=== PATIENT | female | born 1965 | race Caucasian/White ===

== ENCOUNTER 2017-02-27 13:58 | Emergency (ER) | payer SELFPAY ==
[2017-02-27 14:31] LABS: Clarity Clear (Clear)
[2017-02-27 14:32] LABS: Bilirubin Negative (Negative); Blood, Urine Trace (Negative); Glucose, Urine (Dipstick) Negative (Negative); Leukocyte Trace (Negative); Nitrite Negative (Negative); Protein, Urine (Dipstick) Negative (Neg-Trace); Specific Gravity, Urine 1.015 (1.005-1.030); Urobilinogen 0.2 mg/dL (0.2-1.0)
[2017-02-27 14:33] LABS: Bacteria/HPF Rare-Few HPF (None Seen); RBC/HPF 0-3 HPF (0-3); Squamous Epithelial 0-3 HPF (0-3); WBC/HPF 0-3 HPF (0-3)
[2017-02-27 15:10] LABS: #Basophils 0.1 thou/uL (0.0-0.2); #Eosinphils 0.1 thou/uL (0.0-0.7); #Lymphocytes 2.2 thou/uL (1.20-3.40); #Monocytes 0.5 thou/uL (0.11-0.59); #Neutrophils 7.7 thou/uL (1.40-6.50); %Basophils 0.9 % (0.0-1.0); %Eosinophils 1.1 % (0.0-10.0); %Lymphocytes 20.9 % (21.0-51.0); %Neutrophils 72.1 % (42.0-75.0); Hemoglobin 14.5 g/dL (12.0-16.0); Mean Corpuscular HGB CONC 34.8 g/dL (32.0-36.0); Mean Corpuscular Volume 94.8 fl (81.0-99.0); Mean Platelet Volume 11.8 fL (7.4-10.4); Platelet Count 141 thou/uL (130-400); RBC Distribution Width 13.1 % (11.5-14.5); Red Blood Cell (RBC) Count 4.39 mill/uL (4.20-5.40); White Blood Cell (WBC) Count 10.7 thou/uL (4.8-10.8)
[2017-02-27 15:22] LABS: ALT (SGPT) 60 U/L (8-55); AST (SGOT) 35 U/L (5-34); Alkaline Phosphatase 91 U/L (40-150); Anion Gap 17 mmol/L (10-20); BUN (Urea Nitrogen) 16 mg/dL (9.8-20.1); Bilirubin, Total 0.5 mg/dL (0.2-1.2); CRP (Inflammatory) 4.59 mg/dL (= or < 0.5); Calc. Creatinine Clearance 0 mL/min (70-130); Calcium 8.9 mg/dL (7.8-10.44); Carbon Dioxide 21 mmol/L (22-29); Chloride 105 mmol/L (98-107); Estimated GFR-MDRD 75; Globulin 2.9 g/dL (2.4-3.5); Glucose 121 mg/dL (70-105); Protein, Total 6.9 g/dL (6.0-8.3); Sodium 139 mmol/L (136-145)
[2017-02-27] MEDS ORDERED: Cipro 250 MG TAB ONE (15:39)
[2017-02-27] MEDS ORDERED: metroNIDAZOLE 250 MG TAB ONE (15:39)
[2017-02-27] MEDS ORDERED: Ketorolac Tromethamine 60 MG/2 ML VIAL ONE (15:39)
== END 2017-02-27 15:51 | disposition home or self-care (01) ==
LOC: MADERS 13:58
DX: K57.92 Diverticulitis of intestine, part unspecified, without perforation or abscess without bleeding (principal); E78.00 Pure hypercholesterolemia, unspecified; F31.9 Bipolar disorder, unspecified; F17.210 Nicotine dependence, cigarettes, uncomplicated; Z79.899 Other long term (current) drug therapy
CPT/HCPCS: 36415; 80053; 81001; 85025; 86140; 87086; 96372; J1885

== ENCOUNTER 2017-06-03 09:12 | Emergency (ER) | payer SELFPAY ==
[~2017-06-03 09:12] MED LIST: Sodium Chloride 0.9% 1,000 ML BAG ONE
[2017-06-03 09:45] LABS: Clarity Clear (Clear); Glucose, Urine (Dipstick) Negative (Negative); Leukocyte Negative (Negative); Nitrite Negative (Negative); Protein, Urine (Dipstick) Negative (Neg-Trace); Urobilinogen 0.2 mg/dL (0.2-1.0); pH, Urine 5.5 (5.0-9.0)
[2017-06-03 09:46] LABS: Bilirubin Negative (Negative); Blood, Urine Negative (Negative)
[2017-06-03 09:53] LABS: Bacteria/HPF Rare-Few HPF (None Seen); WBC/HPF None Seen HPF (0-3)
[2017-06-03] MEDS ORDERED: metroNIDAZOLE 500 MG/100 ML BAG ONE (10:00)
[2017-06-03] MEDS ORDERED: Ondansetron HCl/PF 4 MG/2 ML Vial ONE (10:00)
[2017-06-03] MEDS ORDERED: Metoclopramide HCl 10 MG/2 ML VIAL ONE (10:00)
[2017-06-03] MEDS ORDERED: Morphine Sulfate 2 MG/ML SYRINGE ONE (10:00)
[2017-06-03 10:23] LABS: #Basophils 0.1 thou/uL (0.0-0.2); #Eosinphils 0.2 thou/uL (0.0-0.7); #Lymphocytes 2.4 thou/uL (1.20-3.40); #Monocytes 0.6 thou/uL (0.11-0.59); #Neutrophils 7.9 thou/uL (1.40-6.50); %Basophils 0.8 % (0.0-1.0); %Eosinophils 1.6 % (0.0-10.0); %Lymphocytes 21.3 % (21.0-51.0); %Monocytes 5.5 % (0.0-10.0); %Neutrophils 70.9 % (42.0-75.0); Hemoglobin 14.4 g/dL (12.0-16.0); Mean Corpuscular HGB CONC 34.3 g/dL (32.0-36.0); Mean Corpuscular Hemoglobin 32.2 pg (27.0-31.0); Mean Corpuscular Volume 93.8 fl (81.0-99.0); Mean Platelet Volume 12.7 fL (7.4-10.4); Platelet Count 141 thou/uL (130-400); RBC Distribution Width 12.5 % (11.5-14.5); Red Blood Cell (RBC) Count 4.47 mill/uL (4.20-5.40); White Blood Cell (WBC) Count 11.2 thou/uL (4.8-10.8)
[2017-06-03 10:27] LABS: Manual Diff?? NO
[2017-06-03 10:34] LABS: ALT (SGPT) 49 U/L (8-55); AST (SGOT) 29 U/L (5-34); Albumin 3.9 g/dL (3.5-5.0); Alkaline Phosphatase 94 U/L (40-150); Anion Gap 15 mmol/L (10-20); BUN (Urea Nitrogen) 14 mg/dL (9.8-20.1); Bilirubin, Total 0.5 mg/dL (0.2-1.2); Calc. Creatinine Clearance 0 mL/min (70-130); Calcium 8.9 mg/dL (7.8-10.44); Carbon Dioxide 22 mmol/L (22-29); Chloride 106 mmol/L (98-107); Estimated GFR-MDRD 79; Glucose 98 mg/dL (70-105); Lipase 66 U/L (8-78); Potassium 4.1 mmol/L (3.5-5.1); Protein, Total 6.9 g/dL (6.0-8.3); Sodium 139 mmol/L (136-145)
== END 2017-06-03 11:40 | disposition home or self-care (01) ==
LOC: MADERS 09:12
DX: K57.92 Diverticulitis of intestine, part unspecified, without perforation or abscess without bleeding (principal); F31.9 Bipolar disorder, unspecified; F17.210 Nicotine dependence, cigarettes, uncomplicated; Z79.82 Long term (current) use of aspirin
CPT/HCPCS: 80053; 81001; 82150; 83690; 85025; 87086; 96365; 96375; J2270; J2405; J2765; J7050

== ENCOUNTER 2017-10-08 15:35 | Emergency (ER) | payer SELFPAY | END 2017-10-08 16:17 | disposition home or self-care (01) | LOC: MADERS 15:35 | DX: J11.1 Influenza due to unidentified influenza virus with other respiratory manifestations (principal); E78.00 Pure hypercholesterolemia, unspecified; F31.9 Bipolar disorder, unspecified; F17.210 Nicotine dependence, cigarettes, uncomplicated; Z79.82 Long term (current) use of aspirin | CPT/HCPCS: 99406 ==

== ENCOUNTER 2017-11-02 22:15 | Emergency (ER) | payer SELFPAY ==
[2017-11-02] MEDS ORDERED: Lorazepam 2 MG/ML VIAL ONE (23:25)
[2017-11-02] MEDS ORDERED: Morphine 4 MG/ML VIAL ONE (23:25)
[2017-11-02] MEDS ORDERED: Aspirin 325 MG TAB ONE (23:26)
[2017-11-02] MEDS ORDERED: AMOXicillin 250 MG CAP ONE (23:26)
[2017-11-02] MEDS ORDERED: Ondansetron HCl/PF 4 MG/2 ML Vial ONE (23:26)
[2017-11-02] MEDS ORDERED: Benzonatate 100 MG CAP ONE (23:26)
[2017-11-02] MEDS ORDERED: Ketorolac Tromethamine 30 MG/ML VIAL ONE (23:26)
[2017-11-02 23:36] LABS: #Basophils 0.2 thou/uL (0.0-0.2); #Eosinphils 0.3 thou/uL (0.0-0.7); #Lymphocytes 3.8 thou/uL (1.20-3.40); #Monocytes 0.5 thou/uL (0.11-0.59); #Neutrophils 5.2 thou/uL (1.40-6.50); %Basophils 1.8 % (0.0-1.0); %Eosinophils 2.6 % (0.0-10.0); %Lymphocytes 38.2 % (21.0-51.0); %Monocytes 5.4 % (0.0-10.0); Hemoglobin 15.4 g/dL (12.0-16.0); Mean Corpuscular HGB CONC 33.4 g/dL (32.0-36.0); Mean Corpuscular Hemoglobin 31.3 pg (27.0-31.0); Mean Corpuscular Volume 93.7 fl (81.0-99.0); Platelet Count 196 thou/uL (130-400); RBC Distribution Width 11.9 % (11.5-14.5); Red Blood Cell (RBC) Count 4.91 mill/uL (4.20-5.40)
--- NOTE | 2017-11-02 23:39 | RAD ---
PORTABLE AP CHEST X-RAY 11/02/17 HISTORY: Chest pain. COMPARISON: 09/30/15. FINDINGS: The cardiac silhouette and pulmonary vasculature are within normal limits. The lungs remain clear. Th ere is has been no interval change from prior exam. IMPRESSION: No acute cardiopulmonary process. POS: [facility]
[2017-11-02 23:50] LABS: ALT (SGPT) 47 U/L (8-55); AST (SGOT) 30 U/L (5-34); Albumin 4.2 g/dL (3.5-5.0); Alkaline Phosphatase 108 U/L (40-150); Anion Gap 17 mmol/L (10-20); BUN (Urea Nitrogen) 13 mg/dL (9.8-20.1); Bilirubin, Total 0.3 mg/dL (0.2-1.2); CK (CPK) 108 U/L (29-168); Calc. Creatinine Clearance 0 mL/min (70-130); Calcium 9.5 mg/dL (7.8-10.44); Carbon Dioxide 21 mmol/L (22-29); Chloride 106 mmol/L (98-107); Estimated GFR-MDRD 61; Globulin 3.3 g/dL (2.4-3.5); Glucose 97 mg/dL (70-105); Potassium 4.2 mmol/L (3.5-5.1); Protein, Total 7.5 g/dL (6.0-8.3); Sodium 140 mmol/L (136-145)
[2017-11-02 23:52] LABS: CKMB 1.8 ng/mL (0-6.6); Troponin I Less than 0.010 ng/mL (< 0.028)
== END 2017-11-03 01:39 | disposition home or self-care (01) ==
LOC: MADERS 22:15
DX: J20.9 Acute bronchitis, unspecified (principal); E78.00 Pure hypercholesterolemia, unspecified; F31.9 Bipolar disorder, unspecified; F17.210 Nicotine dependence, cigarettes, uncomplicated
CPT/HCPCS: 71045; 80053; 82550; 82553; 83880; 84443; 84484; 85025; 93005; 96374; 96375; J1885; J2060; J2270; J2405

== ENCOUNTER 2018-01-06 12:57 | Emergency (ER) | payer SELFPAY ==
[2018-01-06 13:53] LABS: Bilirubin Negative (Negative); Blood, Urine Trace (Negative); Glucose, Urine (Dipstick) Negative (Negative); Leukocyte Negative (Negative); Nitrite Negative (Negative); Protein, Urine (Dipstick) Negative (Neg-Trace); Urobilinogen 0.2 mg/dL (0.2-1.0)
[2018-01-06 13:59] LABS: Clarity Hazy (Clear); RBC/HPF 0-3 HPF (0-3)
[2018-01-06 14:00] LABS: Bacteria/HPF 1+ HPF (None Seen); WBC/HPF 0-3 HPF (0-3)
[2018-01-06] MEDS ORDERED: Ketorolac Tromethamine 30 MG/ML VIAL ONE (14:04)
[2018-01-06] MEDS ORDERED: Ondansetron HCl/PF 4 MG/2 ML Vial ONE (14:04)
[2018-01-06] MEDS ORDERED: MORPHINE 10 MG/ML SYRINGE ONE (14:04)
[2018-01-06 14:13] LABS: #Basophils 0.1 thou/uL (0.0-0.2); #Eosinphils 0.2 thou/uL (0.0-0.7); #Lymphocytes 2.7 thou/uL (1.20-3.40); #Monocytes 0.6 thou/uL (0.11-0.59); #Neutrophils 8.3 thou/uL (1.40-6.50); %Basophils 1.1 % (0.0-1.0); %Eosinophils 1.4 % (0.0-10.0); %Neutrophils 69.4 % (42.0-75.0); Hemoglobin 14.9 g/dL (12.0-16.0); Mean Corpuscular Hemoglobin 31.5 pg (27.0-31.0); Mean Corpuscular Volume 92.5 fl (81.0-99.0); Mean Platelet Volume 11.4 fL (7.4-10.4); Platelet Count 157 thou/uL (130-400); RBC Distribution Width 12.1 % (11.5-14.5); Red Blood Cell (RBC) Count 4.73 mill/uL (4.20-5.40); White Blood Cell (WBC) Count 11.9 thou/uL (4.8-10.8)
[2018-01-06 14:29] LABS: ALT (SGPT) 35 U/L (8-55); AST (SGOT) 27 U/L (5-34); Alkaline Phosphatase 103 U/L (40-150); Anion Gap 17 mmol/L (10-20); BUN (Urea Nitrogen) 13 mg/dL (9.8-20.1); Bilirubin, Total 0.4 mg/dL (0.2-1.2); Calc. Creatinine Clearance 0 mL/min (70-130); Calcium 9.1 mg/dL (7.8-10.44); Carbon Dioxide 20 mmol/L (22-29); Chloride 106 mmol/L (98-107); Estimated GFR-MDRD 75; Globulin 3.1 g/dL (2.4-3.5); Glucose 96 mg/dL (70-105); Potassium 4.1 mmol/L (3.5-5.1); Protein, Total 7.1 g/dL (6.0-8.3); Sodium 139 mmol/L (136-145)
[2018-01-06] MEDS ORDERED: HYDROcodone/Acetaminophen 10/325 mg Tablet ONE (15:05)
[2018-01-06] MEDS ORDERED: Cephalexin 500 MG CAP ONE (15:06)
[2018-01-06] MEDS ORDERED: metroNIDAZOLE 250 MG TAB ONE (15:06)
== END 2018-01-06 15:25 | disposition home or self-care (01) ==
LOC: MADERS 12:57
DX: K57.92 Diverticulitis of intestine, part unspecified, without perforation or abscess without bleeding (principal); E78.00 Pure hypercholesterolemia, unspecified; F31.9 Bipolar disorder, unspecified; F17.210 Nicotine dependence, cigarettes, uncomplicated
CPT/HCPCS: 36415; 80053; 81001; 85025; 87086; 96374; 96375; J1885; J2270; J2405

== ENCOUNTER 2018-11-20 11:37 | Outpatient (CLI) | payer OTHER ==
--- NOTE | 2018-11-20 12:17 | RAD ---
PA AND LATERAL CHEST: History: Shortness of breath. FINDINGS: Heart size and mediastinum are within normal limits. The lungs are clear of any focal infiltrative pr ocess. There are arthritic changes of the spine. IMPRESSION: No active intrathoracic disease. POS: [facility]
--- NOTE | 2018-11-20 12:47 | RAD ---
LUMBAR SPINE SERIES THREE VIEWS: HISTORY: Chronic low back pain. COMPARISON: 02/23/2015 FINDINGS: Vertebral bodies are normal in height. There are degenerative osteophytes along the course of the sp ine without significant disk narrowing. Pedicles are intact. Vascular calcifications are seen. IMPRESSION: Mild arthritic changes of the spine, relatively stable as compared to the previous examination. POS: [facility]
== END 2018-11-20 11:38 | disposition home or self-care (01) ==
LOC: MADRAD 11:37
PROVIDERS: ATTEND Physician Assistant
DX: R06.02 Shortness of breath (principal); M54.9 Dorsalgia, unspecified; M47.816 Spondylosis without myelopathy or radiculopathy, lumbar region
CPT/HCPCS: 71046; 72100

== ENCOUNTER 2018-12-07 11:40 | Emergency (ER) | payer OTHER ==
[2018-12-07] MEDS ORDERED: Ondansetron PF 4 MG/2 ML Vial ONE (12:59)
--- NOTE | 2018-12-07 13:19 | RAD ---
CHEST 1 VIEW TWO VIEWS ABDOMEN: HISTORY: Pain. Diarrhea. COMPARISON: 05/27/2015. FINDINGS: ONE VIEW CHEST: Normal cardiac silhouette. Pulmonary vessels and hilum are normal. Costophrenic angles are clear. No consolidation or mass. No pneumothorax or osseous abnormalities. TWO VIEWS ABDOMEN: Nonspecific bowel gas pattern. No suspicious densities in the and or pelvis. No differential air fl uid levels. No pneumoperitoneum. IMPRESSION: 1. No acute cardiopulmonary process. 2. Nonspecific bowel gas pattern. POS: [facility]
== END 2018-12-07 14:32 | disposition home or self-care (01) ==
LOC: MADERS 11:40
DX: A08.4 Viral intestinal infection, unspecified (principal); I10 Essential (primary) hypertension; E78.00 Pure hypercholesterolemia, unspecified; F31.9 Bipolar disorder, unspecified; F17.210 Nicotine dependence, cigarettes, uncomplicated
CPT/HCPCS: 74022; 94760; 96361; 96374; J2405; J7050

== ENCOUNTER 2019-04-12 08:24 | Emergency (ER) | payer OTHER | END 2019-04-12 09:15 | disposition home or self-care (01) | LOC: MADERS 08:24 | DX: J06.9 Acute upper respiratory infection, unspecified (principal); I10 Essential (primary) hypertension; E78.00 Pure hypercholesterolemia, unspecified; F31.9 Bipolar disorder, unspecified; F17.210 Nicotine dependence, cigarettes, uncomplicated | CPT/HCPCS: 87081; 87430; 87804; 99283 ==

== ENCOUNTER 2019-09-11 08:06 | Emergency (ER) | payer OTHER ==
[2019-09-11] MEDS ORDERED: Meclizine HCl 25 MG TAB ONE (08:49)
[2019-09-11] MEDS ORDERED: Ondansetron ODT 4 MG TAB ONE (08:49)
[2019-09-11] MEDS ORDERED: Diazepam 10 MG/2 ML SYRINGE ONE ×2 (09:18→09:56)
[2019-09-11] MEDS ORDERED: Sodium Chloride 0.9% 1,000 ML ONE (09:18)
[2019-09-11 09:46] LABS: #Basophils 0.1 thou/uL (0.0-0.2); #Eosinphils 0.1 thou/uL (0.0-0.7); #Monocytes 0.3 thou/uL (0.11-0.59); #Neutrophils 5.8 thou/uL (1.40-6.50); %Basophils 1.1 % (0.0-1.0); %Eosinophils 1.7 % (0.0-10.0); %Lymphocytes 24.1 % (21.0-51.0); %Monocytes 3.6 % (0.0-10.0); %Neutrophils 69.6 % (42.0-75.0); Hemoglobin 15.7 g/dL (12.0-16.0); Mean Corpuscular HGB CONC 31.4 g/dL (32.0-36.0); Mean Corpuscular Hemoglobin 29.1 pg (27.0-31.0); Mean Corpuscular Volume 92.9 fL (78.0-98.0); Mean Platelet Volume 10.9 fL (7.4-10.4); Platelet Count 170 thou/uL (130-400); RBC Distribution Width 12.2 % (11.5-14.5); Red Blood Cell (RBC) Count 5.39 mill/uL (4.20-5.40); White Blood Cell (WBC) Count 8.3 thou/uL (4.8-10.8)
--- NOTE | 2019-09-11 09:52 | CT ---
EXAM: CT brain without contrast HISTORY: Vertigo COMPARISON: 07/22/2014 TECHNIQUE: Multiple contiguous axial images were obtained and a CT of the brain without contrast. FINDINGS: The brain is normal in morphology and attenuation without focal lesions or confluent areas of infarction. There is no evidence of hydrocephalus, intracranial hemorrhage, or extra-axial fluid collection. The calvarium and overlying soft tissues are unremarkable. The visualized paranasal sinuses and masto id air cells are well aerated. IMPRESSION: No evidence of acute intracranial abnormality
[2019-09-11] MEDS ORDERED: Aspirin 325 MG TAB ONE (09:56)
[2019-09-11 10:06] LABS: Anion Gap 15 mmol/L (10-20); BUN (Urea Nitrogen) 18 mg/dL (9.8-20.1); CK (CPK) 164 U/L (29-168); Calc. Creatinine Clearance 0 mL/min (70-130); Calcium 9.4 mg/dL (7.8-10.44); Carbon Dioxide 23 mmol/L (22-29); Chloride 107 mmol/L (98-107); Estimated GFR-MDRD 71; Glucose 129 mg/dL (70-105); INR-International Normal Ratio 0.9; Potassium 4.4 mmol/L (3.5-5.1); Prothrombin Time 12.3 SEC (12.0-14.7); Sodium 141 mmol/L (136-145)
[2019-09-11 10:07] LABS: PTT 27.1 SEC (22.9-36.1)
[2019-09-11] MEDS ORDERED: Acetaminophen 325 MG TAB PO PRN (13:41)
[2019-09-11] MEDS ORDERED: Diazepam 10 MG/2 ML SYRINGE IVP PRN (13:44)
[2019-09-11] MEDS ORDERED: Ondansetron PF 4 MG/2 ML Vial IVP PRN (14:52)
[2019-09-11] MEDS ORDERED: Ondansetron ODT 4 MG TAB SL PRN (14:52)
== END 2019-09-11 12:11 | disposition short-term general hospital (02) ==
LOC: MADERS 08:06
DX: R42 Dizziness and giddiness (principal)
CPT/HCPCS: 70450; 80048; 82550; 84443; 84484; 85025; 85610; 85730; 93005; 96361; 96374; J3360; J7050; J8597; Q0162

== ENCOUNTER 2019-11-02 05:16 | Emergency (ER) | payer OTHER ==
[2019-11-02] MEDS ORDERED: Ibuprofen 800 MG TAB ONE (05:48)
== END 2019-11-02 06:10 | disposition home or self-care (01) ==
LOC: MADERS 05:16
DX: B34.9 Viral infection, unspecified (principal); I10 Essential (primary) hypertension; F41.9 Anxiety disorder, unspecified; E78.00 Pure hypercholesterolemia, unspecified; G45.9 Transient cerebral ischemic attack, unspecified; F31.9 Bipolar disorder, unspecified; F17.210 Nicotine dependence, cigarettes, uncomplicated; Z79.899 Other long term (current) drug therapy
CPT/HCPCS: 87081; 87430; 87804; 99406

== ENCOUNTER 2019-12-11 06:44 | Emergency (ER) | payer OTHER ==
[2019-12-11] MEDS ORDERED: Ondansetron PF 4 MG/2 ML Vial ONE (07:24)
[2019-12-11] MEDS ORDERED: Sodium Chloride 0.9% 1,000 ML ONE (07:24)
[2019-12-11] MEDS ORDERED: Fentanyl 100 MCG/2 ML VIAL ONE (07:24)
[2019-12-11 07:44] LABS: #Basophils 0.1 thou/uL (0.0-0.2); #Eosinphils 0.1 thou/uL (0.0-0.7); #Lymphocytes 1.9 thou/uL (1.20-3.40); #Monocytes 0.5 thou/uL (0.11-0.59); #Neutrophils 9.7 thou/uL (1.40-6.50); %Basophils 0.7 % (0.0-1.0); %Lymphocytes 15.6 % (21.0-51.0); %Monocytes 4.2 % (0.0-10.0); %Neutrophils 78.5 % (42.0-75.0); Hemoglobin 14.2 g/dL (12.0-16.0); Mean Corpuscular HGB CONC 30.9 g/dL (32.0-36.0); Mean Corpuscular Volume 93.7 fL (78.0-98.0); Mean Platelet Volume 11.5 fL (7.4-10.4); Platelet Count 164 thou/uL (130-400); RBC Distribution Width 13.6 % (11.5-14.5); White Blood Cell (WBC) Count 12.3 thou/uL (4.8-10.8)
--- NOTE | 2019-12-11 07:57 | CT ---
CT Abdomen Pelvis W Con History: Lower abdominal pain Comparison: CT exam 2014 Findings: Lung bases are clear. No pericardial effusion. Liver, gallbladder, spleen, pancreas are unremarkable. The aortic contour is nonaneurysmal. There is moderate diverticular disease of the sigmoid colon. Findings of epiploic appendagitis of the sigmoid colon. There is adjacent wall thickening, circumferential, for a length of 5.3 cm may be reactive versus less likely underlying mass. The appendix is visualized and is normal. Mild atherosclerotic plaque. No hydronephrosis. Impression: 1. Epiploic appendagitis sigmoid colon. 2. Circumferential wall thickening for length of 5.3 cm the adjacent sigmoid colon likely sequelae of reactive inflammation and less likely a mass. If the patient has not artery had a colonoscopy, nonemergent colonoscopic evaluation is recommended. 3. Normal appendix.
[2019-12-11 08:01] LABS: ALT (SGPT) 24 U/L (8-55); AST (SGOT) 18 U/L (5-34); Albumin 4.4 g/dL (3.5-5.0); Alkaline Phosphatase 124 U/L (40-110); Anion Gap 15 mmol/L (10-20); BUN (Urea Nitrogen) 17 mg/dL (9.8-20.1); Bilirubin, Total 0.6 mg/dL (0.2-1.2); Calc. Creatinine Clearance 0 mL/min (70-130); Carbon Dioxide 22 mmol/L (22-29); Chloride 106 mmol/L (98-107); Estimated GFR-MDRD 65; Globulin 3.2 g/dL (2.4-3.5); Glucose 123 mg/dL (70-105); Potassium 4.2 mmol/L (3.5-5.1); Protein, Total 7.6 g/dL (6.0-8.3); Sodium 139 mmol/L (136-145)
[2019-12-11] MEDS ORDERED: Iopamidol 370 76% 100 ML VIAL ONE (10:05)
== END 2019-12-11 08:38 | disposition home or self-care (01) ==
LOC: MADERS 06:44
DX: K63.89 Other specified diseases of intestine (principal); R11.2 Nausea with vomiting, unspecified; I10 Essential (primary) hypertension; E78.00 Pure hypercholesterolemia, unspecified; F41.9 Anxiety disorder, unspecified; F31.9 Bipolar disorder, unspecified; F17.210 Nicotine dependence, cigarettes, uncomplicated; Z71.6 Tobacco abuse counseling; Z86.73 Personal history of transient ischemic attack (TIA), and cerebral infarction without residual deficits; Z79.899 Other long term (current) drug therapy; Z79.82 Long term (current) use of aspirin
CPT/HCPCS: 74177; 80053; 85025; 96361; 96374; 96375; J2405; J3010; J7050; Q9967

== ENCOUNTER 2020-02-22 11:36 | Emergency (ER) | payer OTHER, SELFPAY | END 2020-02-22 12:10 | disposition home or self-care (01) | LOC: MADERS 11:36 | DX: M54.5 Low back pain (principal); I10 Essential (primary) hypertension; F41.9 Anxiety disorder, unspecified; F31.9 Bipolar disorder, unspecified; F17.210 Nicotine dependence, cigarettes, uncomplicated; E78.00 Pure hypercholesterolemia, unspecified; Z86.73 Personal history of transient ischemic attack (TIA), and cerebral infarction without residual deficits; Z79.899 Other long term (current) drug therapy; Z79.82 Long term (current) use of aspirin | CPT/HCPCS: 99283 ==

== ENCOUNTER 2020-04-07 13:58 | Outpatient (CLI) | payer BC ==
--- NOTE | 2020-04-07 14:26 | RAD ---
EXAM: Chest 2 views: HISTORY: Chronic cough COMPARISON: 11/20/2018 FINDINGS: There is a normal-sized cardiomediastinal silhouette. There is no evidence of consolidation, mass, or pleural effusion. The bones are unremarkable. IMPRESSION: No evidence of acute cardiopulmonary disease
== END 2020-04-07 13:59 | disposition home or self-care (01) ==
LOC: MADRAD 13:58
PROVIDERS: ATTEND Family Medicine
DX: R05 Cough (principal)
CPT/HCPCS: 71046

== ENCOUNTER 2020-06-08 16:11 | Emergency (ER) | payer BC | END 2020-06-08 16:45 | disposition home or self-care (01) | LOC: MADERS 16:11 | DX: R50.9 Fever, unspecified (principal); R53.83 Other fatigue; I10 Essential (primary) hypertension; E78.00 Pure hypercholesterolemia, unspecified; F31.9 Bipolar disorder, unspecified; F41.9 Anxiety disorder, unspecified; F17.210 Nicotine dependence, cigarettes, uncomplicated; Z86.73 Personal history of transient ischemic attack (TIA), and cerebral infarction without residual deficits; Z79.899 Other long term (current) drug therapy | CPT/HCPCS: 99283 ==

== ENCOUNTER 2020-06-23 05:43 | Emergency (ER) | payer BC, OTHER ==
[2020-06-23] MEDS ORDERED: Azithromycin 250 MG TAB ONE (07:10)
--- NOTE | 2020-06-23 07:48 | RAD ---
EXAM: Single view of the chest HISTORY: Cough COMPARISON: 11/02/2017 FINDINGS: Single view of the chest shows a normal sized cardiomediastinal silhouette. Increased inte rstitial lung markings are present. There is no evidence of consolidation, mass, or pleural effusion. Degenerative changes are seen in the spine. IMPRESSION: No evidence of acute cardiopulmonary disease
[2020-06-23 18:05] LABS: SARS-CoV-2 MS2 Positive; SARS-CoV-2 N Gene Positive; SARS-CoV-2 S Gene Positive; SARS-CoV-2 by NAA DETECTED (NotDetected); SARS-CoV-2 orf1ab Positive
== END 2020-06-23 07:25 | disposition home or self-care (01) ==
LOC: MADERS 05:43
DX: U07.1 COVID-19 (principal); J01.90 Acute sinusitis, unspecified; F17.200 Nicotine dependence, unspecified, uncomplicated; R53.1 Weakness; I10 Essential (primary) hypertension; E78.00 Pure hypercholesterolemia, unspecified; F41.9 Anxiety disorder, unspecified; F31.9 Bipolar disorder, unspecified; F17.210 Nicotine dependence, cigarettes, uncomplicated; Z86.73 Personal history of transient ischemic attack (TIA), and cerebral infarction without residual deficits; Z79.82 Long term (current) use of aspirin; Z79.899 Other long term (current) drug therapy
CPT/HCPCS: 71045; 87635; U0003

== ENCOUNTER 2021-05-16 20:01 | Emergency (ER) | payer BC, OTHER ==
[2021-05-16] MEDS ORDERED: Sulfameth/Trimethoprim DS 800-160mg TAB ONE (20:53)
[2021-05-16] MEDS ORDERED: Amoxicillin/Potassium Clav 875 MG TAB ONE (20:53)
== END 2021-05-16 21:07 | disposition home or self-care (01) ==
LOC: MADERS 20:01
DX: L03.211 Cellulitis of face (principal); R59.0 Localized enlarged lymph nodes; F17.210 Nicotine dependence, cigarettes, uncomplicated; E11.9 Type 2 diabetes mellitus without complications; E78.5 Hyperlipidemia, unspecified; I10 Essential (primary) hypertension; E78.00 Pure hypercholesterolemia, unspecified; Z86.73 Personal history of transient ischemic attack (TIA), and cerebral infarction without residual deficits
CPT/HCPCS: 99283

== ENCOUNTER 2021-06-09 07:21 | Outpatient (CLI) | payer BC, OTHER ==
[2021-06-09 08:13] LABS: #Basophils 0.1 thou/uL (0.0-0.2); #Eosinphils 0.1 thou/uL (0.0-0.7); #Lymphocytes 2.5 thou/uL (1.20-3.40); #Monocytes 0.3 thou/uL (0.11-0.59); #Neutrophils 4.5 thou/uL (1.40-6.50); %Basophils 1.3 % (0.0-1.0); %Eosinophils 1.8 % (0.0-10.0); %Lymphocytes 32.5 % (21.0-51.0); %Monocytes 4.3 % (0.0-10.0); %Neutrophils 60.1 % (42.0-75.0); Hemoglobin 14.8 g/dL (12.0-16.0); Mean Corpuscular Hemoglobin 28.7 pg (27.0-31.0); Mean Corpuscular Volume 92.8 fL (78.0-98.0); Mean Platelet Volume 11.9 fL (7.4-10.4); Platelet Count 175 thou/uL (130-400); RBC Distribution Width 13.9 % (11.5-14.5); Red Blood Cell (RBC) Count 5.15 mill/uL (4.20-5.40); White Blood Cell (WBC) Count 7.5 thou/uL (4.8-10.8)
[2021-06-09 08:18] LABS: ALT (SGPT) 46 U/L (8-55); AST (SGOT) 42 U/L (5-34); Albumin 3.8 g/dL (3.5-5.0); Alkaline Phosphatase 104 U/L (40-110); Anion Gap 13 mmol/L (10-20); BUN (Urea Nitrogen) 17 mg/dL (9.8-20.1); Bilirubin, Total 0.4 mg/dL (0.2-1.2); Calc. Creatinine Clearance 0 mL/min (70-130); Calcium 8.9 mg/dL (7.8-10.44); Carbon Dioxide 24 mmol/L (22-29); Cardiac Risk 7.5 (Less than 4.5); Chloride 107 mmol/L (98-107); Cholesterol 172 mg/dl (< 200 Desired); Globulin 3.3 g/dL (2.4-3.5); Glucose 131 mg/dL (70-105); HDL Cholesterol 23 mg/dL (>60 Neg Risk); Lipase 146 U/L (8-78); Potassium 4.2 mmol/L (3.5-5.1); Protein, Total 7.1 g/dL (6.0-8.3); Sodium 140 mmol/L (136-145); Triglycerides 563 mg/dL (Less than 150)
== END 2021-06-09 07:22 | disposition home or self-care (01) ==
LOC: MADLAB 07:21
PROVIDERS: ATTEND Family Medicine
DX: R10.811 Right upper quadrant abdominal tenderness (principal); E78.5 Hyperlipidemia, unspecified; R93.2 Abnormal findings on diagnostic imaging of liver and biliary tract
CPT/HCPCS: 36415; 76705; 80053; 80061; 82150; 83690; 85025

== ENCOUNTER 2021-07-28 15:09 | Emergency (ER) | payer OTHER ==
[~2021-07-28 15:09] MED LIST changes: +Iopamidol 370 76% 100 ML VIAL ONE; -Sodium Chloride 0.9% 1,000 ML BAG ONE
[2021-07-28] MEDS ORDERED: Morphine 4 MG/ML VIAL ONE ×2 (16:43→20:26)
[2021-07-28 17:07] LABS: #Basophils 0.1 thou/uL (0.0-0.2); #Eosinphils 0.1 thou/uL (0.0-0.7); #Lymphocytes 0.9 thou/uL (1.20-3.40); #Monocytes 0.2 thou/uL (0.11-0.59); #Neutrophils 5.9 thou/uL (1.40-6.50); %Basophils 1.1 % (0.0-1.0); %Eosinophils 0.8 % (0.0-10.0); %Lymphocytes 13.1 % (21.0-51.0); %Neutrophils 83.1 % (42.0-75.0); Hemoglobin 15.2 g/dL (12.0-16.0); Mean Corpuscular HGB CONC 31.2 g/dL (32.0-36.0); Mean Corpuscular Hemoglobin 28.4 pg (27.0-31.0); Mean Corpuscular Volume 91.2 fL (78.0-98.0); Mean Platelet Volume 11.7 fL (7.4-10.4); Platelet Count 194 thou/uL (130-400); RBC Distribution Width 13.2 % (11.5-14.5); Red Blood Cell (RBC) Count 5.34 mill/uL (4.20-5.40); White Blood Cell (WBC) Count 7.1 thou/uL (4.8-10.8)
[2021-07-28] MEDS ORDERED: Sodium Chloride 0.9% 1,000 ML ONE (17:07)
[2021-07-28] MEDS ORDERED: Promethazine HCl 25 MG/ML VIAL ONE (17:07)
[2021-07-28 17:23] LABS: ALT (SGPT) 65 U/L (8-55); AST (SGOT) 107 U/L (5-34); Albumin 4.2 g/dL (3.5-5.0); Alkaline Phosphatase 88 U/L (40-110); Anion Gap 14 mmol/L (10-20); BUN (Urea Nitrogen) 21 mg/dL (9.8-20.1); Bilirubin, Total 0.7 mg/dL (0.2-1.2); Calc. Creatinine Clearance 0 mL/min (70-130); Calcium 9.3 mg/dL (7.8-10.44); Carbon Dioxide 24 mmol/L (22-29); Chloride 105 mmol/L (98-107); Globulin 3.4 g/dL (2.4-3.5); Glucose 114 mg/dL (70-105); Lipase 750 U/L (8-78); Potassium 3.9 mmol/L (3.5-5.1); Protein, Total 7.6 g/dL (6.0-8.3); Sodium 139 mmol/L (136-145)
[2021-07-28 18:21] LABS: Bilirubin Negative (Negative); Blood, Urine Negative (Negative); Clarity Clear (Clear); Glucose, Urine (Dipstick) Negative (Negative); Ketone, Urine Negative (Negative); Leukocyte Negative (Negative); Nitrite Negative (Negative); Protein, Urine (Dipstick) Negative (Neg-Trace); Specific Gravity, Urine 1.015 (1.005-1.030); pH, Urine 7.5 (5.0-9.0)
[2021-07-28] MEDS ORDERED: metroNIDAZOLE 500 MG/100 ML BAG ONE (19:29)
[2021-07-28] MEDS ORDERED: Ciprofloxacin Lactate/D5W 400 mg/200 ml Premix ONE (19:29)
[2021-07-28 21:37] LABS: SARS-CoV-2 NAA Rapid Test Not Detected (NotDetected)
== END 2021-07-28 20:48 | disposition short-term general hospital (02) ==
LOC: MADERS 15:09
DX: K85.90 Acute pancreatitis without necrosis or infection, unspecified (principal); K57.32 Diverticulitis of large intestine without perforation or abscess without bleeding; E11.9 Type 2 diabetes mellitus without complications; E78.5 Hyperlipidemia, unspecified; I10 Essential (primary) hypertension; E78.00 Pure hypercholesterolemia, unspecified; F17.210 Nicotine dependence, cigarettes, uncomplicated; Z86.73 Personal history of transient ischemic attack (TIA), and cerebral infarction without residual deficits; Z20.822 Contact with and (suspected) exposure to COVID-19
CPT/HCPCS: 36415; 71045; 74177; 80053; 81003; 83605; 83690; 84484; 85025; 93005; 96365; 96368; 96375; 96376; J0744; J2270; J2550; J7050; Q9967; U0002

== ENCOUNTER 2021-08-29 00:05 | Emergency (ER) | payer OTHER ==
[2021-08-29] MEDS ORDERED: Ketorolac Tromethamine 30 MG/ML VIAL ONE (02:40)
== END 2021-08-29 03:05 | disposition home or self-care (01) ==
LOC: MADERS 00:05
DX: S69.81XA Other specified injuries of right wrist, hand and finger(s), initial encounter (principal); E11.9 Type 2 diabetes mellitus without complications; E78.5 Hyperlipidemia, unspecified; I10 Essential (primary) hypertension; F17.210 Nicotine dependence, cigarettes, uncomplicated; X58.XXXA Exposure to other specified factors, initial encounter
CPT/HCPCS: 96372; J1885

== ENCOUNTER 2022-02-24 07:38 | Emergency (ER) | payer OTHER, SELFPAY | END 2022-02-24 08:52 | disposition home or self-care (01) | LOC: MADERS 07:38 | DX: S80.02XA Contusion of left knee, initial encounter (principal); E11.9 Type 2 diabetes mellitus without complications; E78.5 Hyperlipidemia, unspecified; I10 Essential (primary) hypertension; F17.210 Nicotine dependence, cigarettes, uncomplicated; Z79.899 Other long term (current) drug therapy; W19.XXXA Unspecified fall, initial encounter ==

== ENCOUNTER 2022-08-09 19:37 | Emergency (ER) | payer BC | END 2022-08-09 22:05 | disposition home or self-care (01) | LOC: MADERS 19:37 | DX: J06.9 Acute upper respiratory infection, unspecified (principal); E11.9 Type 2 diabetes mellitus without complications; I10 Essential (primary) hypertension; E78.5 Hyperlipidemia, unspecified; F17.210 Nicotine dependence, cigarettes, uncomplicated; Z79.84 Long term (current) use of oral hypoglycemic drugs; Z79.899 Other long term (current) drug therapy; Z79.82 Long term (current) use of aspirin | CPT/HCPCS: 71045; 87081; 87430; 87804 ==

== ENCOUNTER 2022-09-08 12:59 | Emergency (ER) | payer BC ==
[~2022-09-08 12:59] MED LIST changes: -Iopamidol 370 76% 100 ML VIAL ONE; +Iopamidol 370 76% 125 ML VIAL FS ONE; +Sodium Chloride 0.9% 100 ML BAG ONE
[2022-09-08 13:26] LABS: #Basophils 0.1 thou/uL (0.0-0.2); #Eosinphils 0.1 thou/uL (0.0-0.7); #Lymphocytes 2.2 thou/uL (1.20-3.40); #Monocytes 0.3 thou/uL (0.11-0.59); #Neutrophils 4.1 thou/uL (1.40-6.50); %Basophils 1.1 % (0.0-1.0); %Eosinophils 1.6 % (0.0-10.0); %Lymphocytes 32.7 % (21.0-51.0); %Monocytes 4.3 % (0.0-10.0); %Neutrophils 60.3 % (42.0-75.0); Hemoglobin 13.4 g/dL (12.0-16.0); Mean Corpuscular HGB CONC 34.5 g/dL (32.0-36.0); Mean Corpuscular Hemoglobin 30.9 pg (27.0-31.0); Mean Corpuscular Volume 89.5 fl (78.0-98.0); Mean Platelet Volume 11.8 fL (7.4-10.4); Platelet Count 162 10x3/uL (130-400); RBC Distribution Width 12.3 % (11.5-14.5); Red Blood Cell (RBC) Count 4.34 mill/uL (4.20-5.40); White Blood Cell (WBC) Count 6.8 10x3/uL (4.8-10.8)
[2022-09-08 13:42] LABS: ALT (SGPT) 27 U/L (8-55); Albumin 3.8 g/dL (3.5-5.0); Alkaline Phosphatase 87 U/L (40-110); Anion Gap 14 mmol/L (10-20); BUN (Urea Nitrogen) 13 mg/dL (9.8-20.1); Bilirubin, Total 0.3 mg/dL (0.2-1.2); Calc. Creatinine Clearance 0 mL/min (70-130); Carbon Dioxide 22 mmol/L (22-29); Chloride 106 mmol/L (98-107); Estimated GFR 76; Globulin 3.2 g/dL (2.4-3.5); Glucose 149 mg/dL (70-105); Potassium 3.6 mmol/L (3.5-5.1); Sodium 138 mmol/L (136-145)
[2022-09-08 13:45] LABS: PTT 29.9 sec (22.9-36.1)
[2022-09-08] MEDS ORDERED: Tenecteplase 50 MG - STEMI KIT ONE (13:45)
[2022-09-08 14:13] LABS: AST (SGOT) 29 U/L (5-34); Calcium 9.2 mg/dL (7.8-10.44)
[2022-09-08] MEDS ORDERED: Aspirin Chewable 81 MG TAB ONE (14:41)
== END 2022-09-08 16:08 | disposition short-term general hospital (02) ==
LOC: MADERS 12:59
DX: G45.9 Transient cerebral ischemic attack, unspecified (principal); E11.9 Type 2 diabetes mellitus without complications; I10 Essential (primary) hypertension; Z79.82 Long term (current) use of aspirin; E78.5 Hyperlipidemia, unspecified; Z79.84 Long term (current) use of oral hypoglycemic drugs; Z79.899 Other long term (current) drug therapy
CPT/HCPCS: 36415; 36416; 70450; 70496; 70498; 71045; 80053; 84484; 85025; 85610; 85730; 93005; 94760; J3101; Q9967

== ENCOUNTER 2022-09-27 05:43 | Outpatient (CLI) | payer BC ==
[2022-09-27 07:04] LABS: ALT (SGPT) 34 U/L (8-55); AST (SGOT) 48 U/L (5-34); Albumin 3.9 g/dL (3.5-5.0); Alkaline Phosphatase 87 U/L (40-110); Anion Gap 13 mmol/L (10-20); BUN (Urea Nitrogen) 15 mg/dL (9.8-20.1); Bilirubin, Total 0.2 mg/dL (0.2-1.2); Calc. Creatinine Clearance 0 mL/min (70-130); Calcium 9.1 mg/dL (7.8-10.44); Carbon Dioxide 23 mmol/L (22-29); Cardiac Risk 4.2 (Less than 4.5); Chloride 109 mmol/L (98-107); Cholesterol 83 mg/dl (< 200 Desired); Estimated GFR 77; Globulin 3.2 g/dL (2.4-3.5); Glucose 129 mg/dL (70-105); HDL Cholesterol 20 mg/dL (>60 Neg Risk); LDL Cholesterol, Calculated 23 mg/dL; Potassium 4.2 mmol/L (3.5-5.1); Protein, Total 7.1 g/dL (6.0-8.3); Sodium 141 mmol/L (136-145); Triglycerides 201 mg/dL (Less than 150)
[2022-09-27 07:09] LABS: #Basophils 0.1 thou/uL (0.0-0.2); #Eosinphils 0.1 thou/uL (0.0-0.7); #Lymphocytes 1.4 thou/uL (1.20-3.40); #Monocytes 0.3 thou/uL (0.11-0.59); #Neutrophils 1.8 thou/uL (1.40-6.50); %Basophils 1.4 % (0.0-1.0); %Eosinophils 2.7 % (0.0-10.0); %Lymphocytes 37.8 % (21.0-51.0); %Monocytes 8.1 % (0.0-10.0); %Neutrophils 49.9 % (42.0-75.0); Hemoglobin 13.7 g/dL (12.0-16.0); Mean Corpuscular HGB CONC 32.9 g/dL (32.0-36.0); Mean Corpuscular Volume 91.2 fl (78.0-98.0); Mean Platelet Volume 11.8 fL (7.4-10.4); Platelet Count 175 10x3/uL (130-400); RBC Distribution Width 12.7 % (11.5-14.5); Red Blood Cell (RBC) Count 4.57 mill/uL (4.20-5.40); White Blood Cell (WBC) Count 3.7 10x3/uL (4.8-10.8)
[2022-09-27 11:46] LABS: Hemoglobin A1c 6.4 % (4.0-6.0)
== END 2022-09-27 05:44 | disposition home or self-care (01) ==
LOC: MADLAB 05:43
PROVIDERS: ATTEND Family Medicine
DX: E78.2 Mixed hyperlipidemia (principal); E11.9 Type 2 diabetes mellitus without complications; Z79.899 Other long term (current) drug therapy
CPT/HCPCS: 36415; 80053; 80061; 83036; 85025

== ENCOUNTER 2022-11-26 21:28 | Emergency (ER) | payer BC ==
[2022-11-26] MEDS ORDERED: cefTRIAXone\\ROCEPHIN 1 GM VIAL ONE (22:16)
== END 2022-11-26 22:25 | disposition home or self-care (01) ==
LOC: MADERS 21:28
DX: J01.90 Acute sinusitis, unspecified (principal); E11.9 Type 2 diabetes mellitus without complications; E78.00 Pure hypercholesterolemia, unspecified; I10 Essential (primary) hypertension; F17.210 Nicotine dependence, cigarettes, uncomplicated; E07.9 Disorder of thyroid, unspecified; Z86.73 Personal history of transient ischemic attack (TIA), and cerebral infarction without residual deficits; Z79.82 Long term (current) use of aspirin; Z79.84 Long term (current) use of oral hypoglycemic drugs; Z79.899 Other long term (current) drug therapy
CPT/HCPCS: 96372; 99283; J0696

== ENCOUNTER 2023-03-09 07:19 | Emergency (ER) | payer BC, SELFPAY ==
[2023-03-09 08:17] LABS: Bilirubin Negative (Negative); Blood, Urine Negative (Negative); Clarity Clear (Clear); Glucose, Urine (Dipstick) Negative (Negative); Ketone, Urine Negative (Negative); Leukocyte Negative (Negative); Nitrite Negative (Negative); Protein, Urine (Dipstick) Negative (Neg-Trace); Urobilinogen 0.2 mg/dL (Less than 2)
[2023-03-09 08:25] LABS: CAUTI Indications for Culture Pelvic or flank pain; RBC/HPF 0-3 HPF (0-3); WBC/HPF 0-3 HPF (0-3)
[2023-03-09 08:26] LABS: Bacteria/HPF Rare-Few HPF (None Seen); Urine Culture Reflex No No
[2023-03-09 08:34] LABS: #Basophils 0.1 thou/uL (0.0-0.2); #Eosinphils 0.1 thou/uL (0.0-0.7); #Lymphocytes 2.7 thou/uL (1.20-3.40); #Monocytes 0.3 thou/uL (0.11-0.59); #Neutrophils 4.3 thou/uL (1.40-6.50); %Basophils 1.2 % (0.0-1.0); %Eosinophils 1.7 % (0.0-10.0); %Lymphocytes 35.8 % (21.0-51.0); %Monocytes 4.4 % (0.0-10.0); Hemoglobin 14.1 g/dL (12.0-16.0); Mean Corpuscular HGB CONC 33.1 g/dL (32.0-36.0); Mean Corpuscular Hemoglobin 29.6 pg (27.0-31.0); Mean Corpuscular Volume 89.4 fl (78.0-98.0); Mean Platelet Volume 13.6 fL (7.4-10.4); Platelet Count 191 10x3/uL (130-400); RBC Distribution Width 12.5 % (11.5-14.5); Red Blood Cell (RBC) Count 4.75 mill/uL (4.20-5.40); White Blood Cell (WBC) Count 7.5 10x3/uL (4.8-10.8)
[2023-03-09 08:45] LABS: Platelet Morphology Comment Appears Adequate
[2023-03-09 08:48] LABS: Albumin 4.3 g/dL (3.5-5.0); Anion Gap 14 mmol/L (10-20); BUN (Urea Nitrogen) 18 mg/dL (9.8-20.1); Bilirubin, Total 0.4 mg/dL (0.2-1.2); Calc. Creatinine Clearance 0 mL/min (70-130); Calcium 9.6 mg/dL (7.8-10.44); Carbon Dioxide 25 mmol/L (22-29); Chloride 105 mmol/L (98-107); Estimated GFR 80; Globulin 3.1 g/dL (2.4-3.5); Glucose 96 mg/dL (70-105); Potassium 4.4 mmol/L (3.5-5.1); Protein, Total 7.4 g/dL (6.0-8.3); Sodium 140 mmol/L (136-145)
[2023-03-09 08:49] LABS: ALT (SGPT) 26 U/L (8-55); AST (SGOT) 25 U/L (5-34); Alkaline Phosphatase 75 U/L (40-110); Lipase 69 U/L (8-78)
[2023-03-09] MEDS ORDERED: Ketorolac Tromethamine 30 MG/ML VIAL ONE (09:25)
[2023-03-09] MEDS ORDERED: Amoxicillin/Potassium Clav 875 MG TAB ONE (10:43)
[2023-03-09 12:53] LABS: Cardiac Risk 5.4 (Less than 4.5)
[2023-03-09 16:36] LABS: Hemoglobin A1c 5.3 % (4.0-6.0)
[2023-03-09 16:50] LABS: Creatinine, Urine 42.96 mg/dL (47-110); Microalbumin Urine Less than 1.0 mg/dL (0.5-50.0)
== END 2023-03-09 10:53 | disposition home or self-care (01) ==
LOC: MADERS 07:19
DX: K57.30 Diverticulosis of large intestine without perforation or abscess without bleeding (principal); E11.9 Type 2 diabetes mellitus without complications; E78.5 Hyperlipidemia, unspecified; I10 Essential (primary) hypertension; F17.210 Nicotine dependence, cigarettes, uncomplicated; Z79.899 Other long term (current) drug therapy; Z79.4 Long term (current) use of insulin; Z79.84 Long term (current) use of oral hypoglycemic drugs
CPT/HCPCS: 74177; 80053; 80061; 81001; 82043; 83036; 83690; 83735; 84443; 85025; 96374; J1885

== ENCOUNTER 2023-07-21 18:09 | Emergency (ER) | payer BC ==
[2023-07-21] MEDS ORDERED: guaiFENesin ER 600 MG TAB ONE (19:05)
[2023-07-21] MEDS ORDERED: Ketorolac Tromethamine 60 MG/2 ML VIAL ONE (19:05)
== END 2023-07-21 19:55 | disposition home or self-care (01) ==
LOC: MADERS 18:09
DX: S29.012A Strain of muscle and tendon of back wall of thorax, initial encounter (principal); J32.8 Other chronic sinusitis; F17.210 Nicotine dependence, cigarettes, uncomplicated; E11.9 Type 2 diabetes mellitus without complications; I10 Essential (primary) hypertension; E78.5 Hyperlipidemia, unspecified; Z79.899 Other long term (current) drug therapy; Z79.82 Long term (current) use of aspirin; X58.XXXA Exposure to other specified factors, initial encounter
CPT/HCPCS: 71046; 87804; 96372; J1885

== ENCOUNTER 2023-09-23 21:09 | Emergency (ER) | payer BC, OTHER, SELFPAY ==
[2023-09-23] MEDS ORDERED: Ketorolac Tromethamine 30 MG/ML VIAL ONE (21:48)
[2023-09-23] MEDS ORDERED: Acetaminophen 500 MG TAB ONE (21:48)
== END 2023-09-23 22:10 | disposition home or self-care (01) ==
LOC: MADERS 21:09
DX: U07.1 COVID-19 (principal); E11.9 Type 2 diabetes mellitus without complications; I10 Essential (primary) hypertension; E78.5 Hyperlipidemia, unspecified; K21.9 Gastro-esophageal reflux disease without esophagitis; F17.210 Nicotine dependence, cigarettes, uncomplicated; Z79.899 Other long term (current) drug therapy; Z20.822 Contact with and (suspected) exposure to COVID-19; Z79.82 Long term (current) use of aspirin
CPT/HCPCS: 87635; 87804; 96372; 99283; J1885

== ENCOUNTER 2024-01-02 12:34 | Emergency (ER) | payer OTHER ==
[2024-01-02] MEDS ORDERED: Lidocaine 4% Patch ONE (13:27)
[2024-01-02] MEDS ORDERED: Ondansetron ODT 4 MG TAB ONE (13:27)
[2024-01-02] MEDS ORDERED: Ketorolac Tromethamine 30 MG (1 mL) VIAL ONE (13:27)
== END 2024-01-02 13:45 | disposition home or self-care (01) ==
LOC: MADERS 12:34
DX: S16.1XXA Strain of muscle, fascia and tendon at neck level, initial encounter (principal); E86.0 Dehydration; R42 Dizziness and giddiness; E11.9 Type 2 diabetes mellitus without complications; I10 Essential (primary) hypertension; E78.5 Hyperlipidemia, unspecified; F17.210 Nicotine dependence, cigarettes, uncomplicated; X58.XXXA Exposure to other specified factors, initial encounter; Z79.82 Long term (current) use of aspirin; Z86.73 Personal history of transient ischemic attack (TIA), and cerebral infarction without residual deficits; Z79.899 Other long term (current) drug therapy
CPT/HCPCS: 96372; 99283; J1885; Q0162

== ENCOUNTER 2024-11-02 20:27 | Emergency (ER) | payer OTHER ==
[2024-11-02] MEDS ORDERED: Ketorolac Tromethamine 30 MG (1 mL) VIAL ONE (21:15)
== END 2024-11-02 21:39 | disposition home or self-care (01) ==
LOC: MADERS 20:27
DX: J06.9 Acute upper respiratory infection, unspecified (principal); R29.700 NIHSS score 0; E11.9 Type 2 diabetes mellitus without complications; E78.5 Hyperlipidemia, unspecified; I10 Essential (primary) hypertension; K21.9 Gastro-esophageal reflux disease without esophagitis; F17.210 Nicotine dependence, cigarettes, uncomplicated; Z86.73 Personal history of transient ischemic attack (TIA), and cerebral infarction without residual deficits; Z79.82 Long term (current) use of aspirin; Z79.899 Other long term (current) drug therapy; Z79.84 Long term (current) use of oral hypoglycemic drugs
CPT/HCPCS: 87428; 96372; 99284; J1885

== ENCOUNTER 2024-12-09 10:18 | Emergency (ER) | payer OTHER ==
[~2024-12-09 10:18] MED LIST changes: +Iopamidol 370 76% 100 ML VIAL ONE; -Iopamidol 370 76% 125 ML VIAL FS ONE; -Sodium Chloride 0.9% 100 ML BAG ONE
[2024-12-09 10:46] LABS: #Lymphocytes 1.8 thou/uL (1.20-3.40); #Monocytes 0.3 thou/uL (0.11-0.59); #Neutrophils 4.8 thou/uL (1.40-6.50); %Basophils 0.6 % (0.0-1.0); %Eosinophils 0.6 % (0.0-10.0); %Lymphocytes 25.7 % (21.0-51.0); %Monocytes 3.7 % (0.0-10.0); %Neutrophils 69.4 % (42.0-75.0); Hematocrit 40.4 % (36.0-47.0); Hemoglobin 13.4 g/dL (12.0-16.0); Mean Corpuscular HGB CONC 33.1 g/dL (32.0-36.0); Mean Corpuscular Hemoglobin 28.9 pg (27.0-31.0); Mean Corpuscular Volume 87.3 fl (78.0-98.0); Mean Platelet Volume 12.7 fL (7.4-10.4); Platelet Count 149 10x3/uL (130-400); RBC Distribution Width 13.1 % (11.5-14.5); Red Blood Cell (RBC) Count 4.63 mill/uL (4.20-5.40); White Blood Cell (WBC) Count 6.9 10x3/uL (4.8-10.8)
[2024-12-09 10:48] LABS: Prothrombin Time 13.1 sec (12.0-14.7)
[2024-12-09 10:49] LABS: PTT 28.9 sec (22.9-36.1)
[2024-12-09 10:54] LABS: ALT (SGPT) 19 U/L (Less than 34); AST (SGOT) 26 U/L (11-34); Albumin 3.8 g/dL (3.1-4.5); Alkaline Phosphatase 90 U/L (40-110); Anion Gap 18 mmol/L (10-20); BUN (Urea Nitrogen) 13 mg/dL (9.8-20.1); Bilirubin, Total 0.4 mg/dL (0.3-1.2); Calc. Creatinine Clearance 0 mL/min (70-130); Calcium 8.8 mg/dL (7.8-10.44); Carbon Dioxide 19 mmol/L (22-29); Chloride 106 mmol/L (98-107); Estimated GFR 60; Globulin 3.6 g/dL (2.4-3.5); Glucose 121 mg/dL (70-105); Potassium 3.9 mmol/L (3.5-5.1); Protein, Total 7.4 g/dL (6.0-8.3); Sodium 139 mmol/L (136-145)
[2024-12-09 10:57] LABS: Troponin I Less than 0.010 ng/mL (< 0.028)
[2024-12-09 10:58] LABS: Large Platelets SLIGHT (None Seen); Platelet Adequacy Comment Appears Adequate
[2024-12-09 11:00] LABS: MDiff Complete? YES
[2024-12-09] MEDS ORDERED: Meclizine HCl 25 MG TAB ONE (11:14)
[2024-12-09] MEDS ORDERED: Acetaminophen 500 MG TAB ONE ×2 (11:14→17:12)
[2024-12-09] MEDS ORDERED: Labetalol HCl 100 MG/20 ML VIAL ONE (17:04)
[2024-12-09] MEDS ORDERED: Ibuprofen 600 MG TAB ONE (17:12)
== END 2024-12-09 19:10 | disposition short-term general hospital (02) ==
LOC: MADERS 10:18
DX: I25.10 Atherosclerotic heart disease of native coronary artery without angina pectoris (principal); R42 Dizziness and giddiness; E11.9 Type 2 diabetes mellitus without complications; F17.210 Nicotine dependence, cigarettes, uncomplicated
CPT/HCPCS: 0042T; 36416; 70450; 80053; 84484; 85025; 85610; 85730; 93005; 94760; 96374; Q9967